=== PATIENT | female | born 1990 | race American Indian/Alaskan Native ===

== ENCOUNTER 2020-08-17 16:34 | Inpatient (IN) | payer MEDICAID, OTHER ==
[~2020-08-17 16:34] MED LIST: OXYTOCIN DRIP 30,000 MILLIUNITS/500 ML BAG IV ONE
[2020-08-17] MEDS ORDERED: miSOPROStol 200 MCG TAB ONE (16:44)
[2020-08-17] MEDS ORDERED: fentaNYL 100 MCG/2 ML INJ ONE (16:47)
[2020-08-17] MEDS ORDERED: BENZOCAINE/MENTHOL 20/0.5% TOP SPRAY 56 GM TP PRN (16:56)
[2020-08-17] MEDS ORDERED: WITCH HAZEL/ GLYCERIN PAD TP PRN (16:56)
[2020-08-17] MEDS ORDERED: ONDANSETRON 4 MG/2 ML INJ IV PRN (16:56)
[2020-08-17] MEDS ORDERED: diphenhydrAMINE 25 MG CAP PO PRN (16:56)
[2020-08-17] MEDS ORDERED: MAGNESIUM HYDROXIDE (MOM) ORAL LIQD UDC PO PRN (16:56)
[2020-08-17] MEDS ORDERED: PROMETHAZINE 25 MG TAB PO PRN (16:56)
[2020-08-17] MEDS ORDERED: LANOLIN/ZINC/DIMETHICONE (LANSINOH) 7 GM TP PRN ×2 (16:56)
--- NOTE | 2020-08-17 16:56 | History and Physical Report ---
History of Present Illness Date of examination: 08/17/20 (Delivered vaginally by EMS) Date of admission: 08/17/20 16:34 Chief complaint: Delivered vaginally by EMS before getting to hospital. History of present illness: Pt presents to [facility] via EMS. Pt states that her contractions started at 0700 am today and they become stronger throughout the day. In the last few hours they became stronger so EMS was called. Pt delivered before getting to the hospital, presented with placenta undelivered. She is a @ 37.6 weeks by EDC of . 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 Will have records scanned into her chart. 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 Denies drug/alcohol use. When her records were reviewed she had the following history: sickle cell trait, thrombocytopenia, and anemia with this , and a LEEP. X 4. #1 08/15/2012 @ 37 weeks. IOL for pre eclampsia, was on magnesium during and after delivery. Was not diagnosed with cHTN and was on no meds. This child has sickle cell trait. #2 08/21/2013 @ 38 wks, no complications. # 3 12/02/2015 @ 37 wks, no complications. #4 07/30/2018 @ 37 wks, no complications, home delivery. 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 ) - Obstetrical History Expected Date of Delivery: 09/01/20 Actual Gestation: 37 Week(s) 6 Day(s) : 5 Para: 4 Hx # Term Pregnancies: 4 Number of Pregnancies: 0 Spontaneous Abortions: 0 Induced : 0 Number of Living Children: 4 Medications and Allergies Allergies Allergy/AdvReac Type Severity Reaction Status Date / Time No Known Allergies Allergy Verified 08/17/20 17:09 Home Medications Medication Instructions Recorded Confirmed Last Taken Type One Daily Tablet 1 tab PO DAILY 08/17/20 08/17/20 1 Day Ago History ~08/16/20 Terazol 7 Vag Cream 1 cream VG DAILY 08/17/20 08/17/20 1 Week Ago History ~08/10/20 Zofran 1 tab PO Q8H PRN 08/17/20 08/17/20 08/17/20 History Review of Systems All systems: negative - Vital Signs Vital signs: Vital Signs Pulse BP 86 146/82 08/17/20 16:43 08/17/20 16:43 Temp Pulse Resp BP Pulse Ox 84 146/82 100 08/17/20 16:54 08/17/20 16:43 08/17/20 16:54 - Physical Exam Breasts: Positive: deferred Cardiovascular: Regular rate Lungs: Positive: Normal air movement Abdomen: Positive: normal appearance Genitourinary (Female): Positive: normal external genitalia, normal perenium Uterus: Positive: normal size, other (firm) Anus/Rectum: Positive: hemorrhoids (Small Hemorroid noted.) Extremities: Positive: normal Deep Tendon Reflex Grade: Normal +2 (Pt denies FARRAR, blurred vision, spots before her eyes, shortness of breath, upper abdominal pain, and chest pain.) Results Result Diagrams: 08/17/20 18:15 All other labs normal. records with labs reviewed: O Positive GBS NEGATIVE RPR NON REACTIVE HIV NON REACTIVE Rubella IMMUNE Hep C Negative Assessment and Plan A: 30 y.o. @ 37.6 wks, vaginal delivery outside the hospital. Delivery of intact placenta on L&D. - Patient Problems (1) Spontaneous vaginal delivery Current Visit: Yes Status: Acute Plan to address problem: Mother baby admission orders placed. Initiate IV. Draw labs. UDS ordered. (2) Thrombocytopenia Current Visit: Yes Status: Acute Plan to address problem: Previous platelets 127 on record. Today 132. Will continue to monitor. (3) History of pre-eclampsia Current Visit: Yes Status: Acute Plan to address problem: Monitor blood pressures. Watch for s/sx of pre eclampsia.
--- NOTE | 2020-08-17 16:56 | Procedure Note ---
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 Presented to labor and delivery with placenta undelivered. Spontaneous delivery of placenta complete, intact, 3 vessels noted. Perineum and vagina inspected, no lacerations noted. Fundus firm, a small amount of brisk bleeding after delivery of placenta. Stopped with Cytotec 800 mcg rectal, and Pitocin. EBL after delivery of placenta 150 ml. Unable to assess bleeding via QBL d/t pt delivering outside of hospital, graduated under buttocks drape not available for delivery of placenta with most of delivery bleeding noted on blue surgical towel. Apgars unknown. Instruments and sponges used to delivery placenta counted with RN and correct X2. Infant weight 6-10. Mother and left in care of RN in stable condition.
[2020-08-17] MEDS ORDERED: OXYTOCIN DRIP 30 UNITS/500 ML BAG IV SCH (17:00)
[2020-08-17] MEDS ORDERED: fentaNYL 100 MCG/2 ML INJ IV ONE (17:03)
[2020-08-17] MEDS ORDERED: miSOPROStol 200 MCG TAB PR ONE (17:38)
[2020-08-17] MEDS ORDERED: MAGNESIUM SULFATE 40GM/1000ML 40 GM/1,000 ML BAG IV ONE (17:55)
[2020-08-17] MEDS ORDERED: MAGNESIUM SULFATE 4 GM/100 ML BAG IV ONE ×2 (17:55→18:04)
--- NOTE | 2020-08-17 17:56 | Event Note ---
Date: 08/17/20 (Elevated blood pressures after delivery) Reviewed blood pressures with RN. Blood pressure ranges are 140-170's/80-100's. [address] Hay. Will order pre eclampsia labs and start magnesium infusion. Pt made aware, agreed with, and verbalized understanding of this plan.
[2020-08-17] MEDS ORDERED: IBUPROFEN 600 MG TAB PO SCH (18:00)
[2020-08-17] MEDS ORDERED: CALCIUM GLUCONATE 1000 MG/10 ML INJ IV ONE (18:04)
[2020-08-17] MEDS ORDERED: LACTATED RINGERS 1,000 ML ONE (18:10)
[2020-08-17 18:35] LABS: Basophils % (Auto) 0.2 % (0.0-1.8); Eosinophils % (Auto) 0.1 % (0.0-4.3); Hemoglobin 11.5 gm/dl (10.1-14.3); Lymphocytes # (Auto) 0.6 K/mm3 (1.2-5.4); Lymphocytes % (Auto) 6.1 % (13.4-35.0); Mean Corpuscular HGB Conc 35 % (30-34); Mean Corpuscular Volume 95 fl (79-97); Monocytes # (Auto) 0.4 K/mm3 (0.0-0.8); Monocytes % (Auto) 4.3 % (0.0-7.3); Platelet Count 132 K/mm3 (140-440); Red Blood Count 3.48 M/mm3 (3.65-5.03); Red Cell Distribution Width 13.2 % (13.2-15.2)
[2020-08-17 18:54] LABS: Uric Acid 5.3 mg/dL (3.5-7.6)
[2020-08-17] MEDS: IBUPROFEN 800 MG TAB PO SCH (18:54)
[2020-08-17 18:59] LABS: Hepatitis C Virus Antibody Non-Reactive (NonReactive)
[2020-08-17] MEDS ORDERED: MAGNESIUM SULFATE 40GM/1000ML 40 GM/1,000 ML BAG IV SCH (19:00)
[2020-08-17] MEDS: ACETAMINOPHEN 325 MG TAB PO PRN (21:08)
[2020-08-17 21:25] LABS: Bilirubin,Urine NEG (Negative); Blood,Urine NEG (Negative); Color,Urine Colorless (Yellow); Protein,Urine <15 mg/dL mg/dL (Negative); Urobilinogen,Urine < 2.0 mg/dL (<2.0)
[2020-08-17 21:33] LABS: Amphetamine Screen,Urine Negative; Benzodiazepines Screen,Urine Negative; Cannabinoid Screen,Urine Negative; Cocaine Screen,Urine Negative; Methadone Screen,Urine Negative; Opiate Screen,Urine Negative
[2020-08-18] MEDS: IBUPROFEN 800 MG TAB PO SCH ×4 (01:06→19:10)
[2020-08-18] MEDS: ACETAMINOPHEN 325 MG TAB PO PRN (03:05)
--- NOTE | 2020-08-18 05:44 | Progress Note ---
Assessment and Plan Pt A&O X 3 No c/o voiced Anxious to see you NB for feeding RN is aware. FF below umb Lochia mod Perineum intact H&H pending. Stable s/p home PP PreE MGSO4 X24hr P: continue pathway. Complete MGSO4 @ 1845. Start labetalol 200mg @ 1000. - Patient Problems (1) Pre-eclampsia, Onset Date: ~08/18/20 Current Visit: Yes Status: Acute Plan to address problem: MGSO4 due to come down @ 1845 BP Labile 160-120/90-70 Pt denies FARRAR, blurred vision, chest pain DTRs wnl, no edema noted Pt is in agreement with POC. Will start po Labetalol 200mg BID @ 1000 this AM Mag level @ MN 5.9 Next one is due Will f/u closely Subjective - Subjective Date of service: 08/18/20 (pt w/o complaints) Principal diagnosis: PP PreE s/p @ home Patient reports: appetite normal, voiding normally (light yellow urine to BSB), pain well controlled Fishtail: doing well Objective - Vital Signs Latest vital signs: Vital Signs Temp Pulse Resp BP Pulse Ox 08/18/20 05:39 98 H 134/77 08/18/20 05:34 109 H 100 08/18/20 05:29 112 H 99 08/18/20 05:24 102 H 98 08/18/20 05:19 101 H 99 08/18/20 05:14 98 H 99 08/18/20 05:09 95 H 133/80 99 08/18/20 05:04 115 H 100 08/18/20 05:00 16 08/18/20 04:59 101 H 99 08/18/20 04:54 105 H 99 08/18/20 04:49 112 H 98 08/18/20 04:44 108 H 98 08/18/20 04:39 111 H 123/77 98 08/18/20 04:34 106 H 98 08/18/20 04:29 107 H 98 08/18/20 04:24 109 H 98 08/18/20 04:19 104 H 98 08/18/20 04:14 101 H 98 08/18/20 04:09 102 H 136/82 99 08/18/20 04:04 95 H 98 08/18/20 04:00 15 08/18/20 03:59 89 99 05 03:54 94 H 99 05 03:49 95 H 99 05 03:44 91 H 99 05 03:39 92 H 122/81 98 05 03:34 88 100 05 03:29 84 100 05 03:24 83 99 05 03:19 77 100 05 03:14 79 100 05 03:09 80 145/91 100 08/18/20 03:04 79 99 08/18/20 03:00 98.8 F 15 08/18/20 02:59 82 100 05 02:54 81 99 05 02:49 104 H 100 08/18/20 02:44 88 99 08/18/20 02:39 94 H 130/82 100 08/18/20 02:34 99 H 99 08/18/20 02:29 98 H 98 08/18/20 02:24 95 H 98 08/18/20 02:19 93 H 99 08/18/20 02:14 96 H 98 08/18/20 02:09 99 H 99 08/18/20 02:04 90 99 08/18/20 02:00 16 08/18/20 01:59 92 H 99 08/18/20 01:54 85 99 08/18/20 01:49 91 H 100 08/18/20 01:44 86 100 05 01:39 96 H 127/89 99 08/18/20 01:34 92 H 99 08/18/20 01:29 84 100 05 01:24 82 99 05 01:19 85 99 05 01:14 77 100 05 01:11 75 140/88 05 01:09 83 161/89 100 05 01:04 84 100 05 01:00 16 08/18/20 00:59 82 100 05 00:54 85 100 05 00:49 91 H 100 05 00:44 81 99 0525 00:39 84 99 0525 00:37 81 92 0525 00:34 84 166/94 99 05/25/21 00:29 94 H 100 08/18/20 00:24 97 H 99 08/18/20 00:19 102 H 99 08/18/20 00:14 90 99 08/18/20 00:09 92 H 100 08/18/20 00:04 87 98 08/18/20 00:00 15 08/17/20 23:59 86 100 08/17/20 23:54 90 98 08/17/20 23:49 83 98 08/17/20 23:44 91 H 98 08/17/20 23:39 91 H 144/92 99 08/17/20 23:34 85 99 08/17/20 23:29 95 H 98 08/17/20 23:24 87 99 08/17/20 23:19 83 96 08/17/20 23:15 86 134/80 08/17/20 23:14 89 98 08/17/20 23:09 91 H 165/94 100 08/17/20 23:04 90 98 08/17/20 23:00 99.1 F 16 08/17/20 22:59 94 H 98 08/17/20 22:54 87 98 08/17/20 22:49 115 H 100 08/17/20 22:44 107 H 100 08/17/20 22:39 93 H 143/85 99 08/17/20 22:34 101 H 98 08/17/20 22:29 105 H 98 08/17/20 22:24 95 H 98 08/17/20 22:19 94 H 98 08/17/20 22:14 90 98 08/17/20 22:09 94 H 132/76 98 08/17/20 22:04 94 H 98 08/17/20 22:00 99.3 F 15 08/17/20 21:59 90 98 08/17/20 21:54 87 98 08/17/20 21:49 91 H 99 08/17/20 21:44 92 H 99 08/17/20 21:39 95 H 139/81 99 08/17/20 21:34 86 99 08/17/20 21:29 95 H 99 08/17/20 21:24 82 98 08/17/20 21:19 82 98 08/17/20 21:14 76 98 08/17/20 21:09 83 139/83 99 05 21:04 90 99 05 21:00 99.8 F H 15 08/17/20 20:59 93 H 98 08/17/20 20:54 87 100 05 20:49 91 H 99 08/17/20 20:44 97 H 99 08/17/20 20:39 97 H 143/87 99 08/17/20 20:34 96 H 99 08/17/20 20:29 97 H 99 08/17/20 20:24 104 H 99 08/17/20 20:19 93 H 99 08/17/20 20:14 98 H 99 08/17/20 20:09 94 H 99 08/17/20 20:04 102 H 142/76 99 08/17/20 20:00 99.7 F H 16 08/17/20 19:59 93 H 142/79 99 08/17/20 19:54 86 148/85 99 08/17/20 19:49 90 141/86 98 08/17/20 19:44 96 H 129/82 98 08/17/20 19:39 78 152/88 100 08/17/20 19:34 101 H 139/83 95 08/17/20 19:29 91 H 155/80 100 08/17/20 19:24 87 149/75 100 08/17/20 19:19 105 H 137/73 100 08/17/20 19:14 95 H 142/75 100 08/17/20 19:09 99 H 134/68 100 08/17/20 19:04 96 H 100 08/17/20 18:59 104 H 100 08/17/20 18:54 103 H 130/70 100 08/17/20 18:49 113 H 100 08/17/20 18:44 103 H 99 08/17/20 18:39 88 119/65 98 08/17/20 18:34 84 99 08/17/20 18:29 83 100 08/17/20 18:24 77 140/83 97 08/17/20 18:19 78 100 08/17/20 18:15 57 L 76 L 08/17/20 18:14 80 99 05 18:09 79 163/87 99 08/17/20 18:04 74 100 08/17/20 18:02 86 94 08/17/20 17:59 79 98 08/17/20 17:55 78 162/89 08/17/20 17:54 58 L 93 08/17/20 17:49 82 99 08/17/20 17:47 49 L 93 08/17/20 17:44 76 99 08/17/20 17:42 78 91 08/17/20 17:41 75 169/73 08/17/20 17:39 89 179/83 97 08/17/20 17:34 81 98 08/17/20 17:29 85 99 08/17/20 17:25 88 150/76 08/17/20 17:24 87 98 08/17/20 17:19 76 99 08/17/20 17:14 90 98 08/17/20 17:09 77 144/72 99 08/17/20 17:08 78 157/101 08/17/20 17:04 74 100 08/17/20 16:59 77 100 08/17/20 16:54 84 100 08/17/20 16:49 84 100 08/17/20 16:44 85 100 08/17/20 16:43 86 146/82 08/17/20 16:40 98.3 F 18 Intake and Output 08/17/20 08/17/20 08/18/20 14:59 22:59 06:59 Output Total 1350 2750 Balance -1350 -2750 Output: Urine 1350 2750 Indwelling Catheter 550 Uretheral (Dan) 800 2750 Other: Total, Output Amount 550 Weight 124 lb Estimated Blood Loss 150 Patient Weight 08/18/20 06:59 Weight 124 lb - Exam Breasts: Present: normal Cardiovascular: Present: Regular rate Lungs: Present: Normal air movement Abdomen: Present: normal appearance, soft, normal bowel sounds Uterus: Present: normal, fundal height below umbilicus Extremities: Present: normal Deep Tendon Reflex Grade: Normal +2 Incision: Present: normal - Labs Labs: Abnormal lab results 08/17/20 08/17/20 08/17/20 Range/Units 18:15 18:15 21:00 RBC 3.48 L (3.65-5.03) M/mm3 MCH 33 H (28-32) pg MCHC 35 H (30-34) % Plt Count 132 L (140-440) K/mm3 Lymph % (Auto) 6.1 L (13.4-35.0) % Lymph # (Auto) 0.6 L (1.2-5.4) K/mm3 Seg Neutrophils % 89.3 H (40.0-70.0) % Seg Neutrophils # 9.2 H (1.8-7.7) K/mm3 Magnesium (1.7-2.3) mg/dL Lactate Dehydrogenase 281 H (91-180) units/L Urine pH 9.0 H (5.0-7.0) 05/25/ Range/Units 00:07 RBC (3.65-5.03) M/mm3 MCH (28-32) pg MCHC (30-34) % Plt Count (140-440) K/mm3 Lymph % (Auto) (13.4-35.0) % Lymph # (Auto) (1.2-5.4) K/mm3 Seg Neutrophils % (40.0-70.0) % Seg Neutrophils # (1.8-7.7) K/mm3 Magnesium 5.90 H (1.7-2.3) mg/dL Lactate Dehydrogenase (91-180) units/L Urine pH (5.0-7.0)
[2020-08-18] MEDS ORDERED: TETANUS,DIPH,PERTUSS(ACELL) VACCINE 0.5 ML SYRINGE IM ONE (06:00)
[2020-08-18] MEDS ORDERED: LACTATED RINGERS 1,000 ML ONE ×2 (06:51→17:24)
[2020-08-18] MEDS: PRENATAL VIT27-FE FUMARATE-FOLIC ACID VIT TAB PO SCH (09:29)
[2020-08-18] MEDS: DOCUSATE SODIUM 100 MG CAP PO SCH ×2 (09:30→21:04)
[2020-08-18 10:17] LABS: Hematocrit 31.3 % (30.3-42.9); Hemoglobin 10.9 gm/dl (10.1-14.3)
[2020-08-18] MEDS: ACETAMINOPHEN 500 MG TAB PO PRN ×2 (14:38→21:04)
[2020-08-19] MEDS: IBUPROFEN 800 MG TAB PO SCH ×3 (00:11→11:58)
--- NOTE | 2020-08-19 06:57 | Discharge Summary ---
Providers - Providers Date of Admission: 08/17/20 16:34 Date of discharge: 08/19/20 (pt desires d/c today) Attending physician: SUSHILA MEYER Primary care physician: SUSHILA MEYER Hospitalization Reason for admission: IUP at term, other (delivered at home) Delivery: Episiotomy: none Laceration: none complications: other (pre-eclampsia) Discharge diagnosis: IUP at term delivered baby: male Hospital course: walk-in presented with uncomplicated home - unintentional PP period pre-eclampsia received 24hr MGSO4 Started Labetalol 200mg po BID Pt in good spirits this AM Denies FARRAR, blurred vision, chest pain. BP 130/90-80 FF below umb Lochia small perineum intact. H&H 01/24 No s/sx of anemia Doing well s/p vag delivery Stable PP Pre-E. P: d/c today with instructions RTO Monday for BP check RX Labetalol and Motrin Depo @ d/c Disposition: - TO HOME OR SELFCARE - Discharge Diagnoses (1) Pre-eclampsia, Status: Acute Comment: RTO Monday for BP check (2) Spontaneous vaginal delivery Status: Acute Comment: RTO 4 weeks PP Care Plan - Discharge Medications Prescriptions: labetaloL [Labetalol 200mg TAB] 200 mg PO BID #60 tablet Ibuprofen [Motrin 800 MG tab] 800 mg PO TID PRN #30 tablet PRN Reason: Pain - Provider Discharge Summary Activity: routine, no sex for 6 weeks, no heavy lifting 4 weeks, no strenuous exercise Diet: routine Instructions: routine Additional instructions: [] Smoking cessation referral if applicable(refer to patient education folder for contact #) [] Refer to [facility] Booklet Call your doctor immediately for: * Fever > 100.5 * Heavy vaginal bleeding ( >1 pad per hour) * Severe persistent headache * Shortness of breath * Reddened, hot, painful area to leg or breast * Drainage or odor from incision. * Keep incision clean and dry at all times and follow doctor's instructions regarding bathing/showering - Follow up plan Follow up: SUSHILA MEYER MD [Primary Care Provider] - 08/21/20 (Congratulations! Please call [phone] to schedule your blood pressure check this Monday\28\21, your son's circumcision in 1 week, and your visit in 4 week. Take your medications as prescribed. Call with headache, unrelieved with Tylenol, blurred vision, chest pain. Call with any concerns.)
[2020-08-19] MEDS ORDERED: medroxyPROGESTERone ACETATE 150 MG/ML SYRINGE IM SCH (07:30)
[2020-08-19] MEDS: ACETAMINOPHEN 500 MG TAB PO PRN (08:14)
[2020-08-19] MEDS: DOCUSATE SODIUM 100 MG CAP PO SCH (09:37)
[2020-08-19] MEDS: PRENATAL VIT27-FE FUMARATE-FOLIC ACID VIT TAB PO SCH (09:37)
[2020-08-19 17:27] VITALS: BP 141/87
== END 2020-08-19 16:10 | disposition home or self-care (01) | DRG 774 ==
LOC: LD 16:34 → OB 08-18 20:32
PROVIDERS: ADMIT Obstetrics & Gynecology; ATTEND Obstetrics & Gynecology
PROC: 10E0XZZ Delivery of Products of Conception, External Approach (ICD-10-PCS; principal; 2020-08-17)
PROC: 3E0234Z Introduction of Serum, Toxoid and Vaccine into Muscle, Percutaneous Approach (ICD-10-PCS; 2020-08-18)
DX: O14.95 Unspecified pre-eclampsia, complicating the puerperium (principal); O62.3 Precipitate labor; O99.325 Drug use complicating the puerperium; F12.90 Cannabis use, unspecified, uncomplicated; O72.3 Postpartum coagulation defects; Z20.822 Contact with and (suspected) exposure to COVID-19; D69.6 Thrombocytopenia, unspecified; Z83.3 Family history of diabetes mellitus; Z82.49 Family history of ischemic heart disease and other diseases of the circulatory system
CPT/HCPCS: 36415; 59200; 80307; 81001; 83615; 83735; 84450; 84460; 84550; 85014; 85018; 85025; 86592; 86706; 86762; 86803; 87806; 99211; G0378; G0463; J1050; J2405; J2590; J3010; J3475; J7120; U0003